=== PATIENT | female | born 1970 | race Caucasian/White ===

== ENCOUNTER 2024-08-29 09:02 | Outpatient (AMB) | payer OTHER, SELFPAY ==
--- NOTE | 2024-08-29 09:04 | MHC.OFFVIS ---
Vital Signs 08/29/24 09:11 BP 135/76 Blood Pressure Location Rt brachial Position Sitting Pulse 73 Pulse Source Pulse Oximeter Pulse Oximetry (%) 99 Oxygen Delivery Method Room Air Intake Visit Reasons: CHRONIC BACK PAIN Intake Note: Pain today 8.5/10 Radio Interference Supervisor Required: No Allergies gabapentin Allergy (Unknown, Verified 08/29/24 09:10) Hives lisinopril Allergy (Unknown, Verified 08/29/24 09:15) Headache losartan Allergy (Unknown, Verified 08/29/24 09:15) Fatigued metformin Allergy (Unknown, Verified 08/29/24 09:15) Unknown nitrofurantoin Allergy (Unknown, Verified 08/29/24 09:15) Gastrointestinal Upset pregabalin Allergy (Unknown, Verified 08/29/24 09:10) Throat tingling sulfamethoxazole (From Sulfamethoxazole-Trimethoprim) Allergy (Unknown, Verified 08/29/24 09:15) vaginal itching/ mouth sores trimethoprim (From Sulfamethoxazole-Trimethoprim) Allergy (Unknown, Verified 08/29/24 09:15) vaginal itching/ mouth sores HPI Comments Details: The patient is a 54-year-old female presenting with chronic low back pain. The pain has been present for approximately 10 years and is described as constant, pulsing, throbbing, pounding, stabbing, sharp, tingling, tiring, tight squeezing, and radiating. The pain is most severe in the morning, rated at 10/10, and less severe in the afternoon, rated at 8/10. The patient has a history of type 2 diabetes mellitus with complications including diabetic neuropathy and nephropathy. She has been on long-term insulin therapy and reports an A1c level between 8 and 9. The diabetic neuropathy has been present for approximately 18 years, with burning pain that is constant and worsens at night. The patient has undergone various interventions for her pain, including physical therapy at [facility], chiropractic manipulation, massage therapy, acupuncture, back and shoulder injections, and herbal supplements (turmeric), all without significant relief. She has also received hydrocodone and oxycodone for pain management, which have been effective. She reports adverse reactions to gabapentin and pregabalin, including hives and tingling in the throat, respectively. The patient has a history of cervical radiculitis, carpal tunnel syndrome on the right, depression, diabetic kidney disease, fibromyalgia, chronic fatigue, and arthritis. She is on permanent disability since 2015 due to her chronic conditions. Her medical history includes hemangioma, facial nerve surgery (1972), knee surgery, and gastric bypass. The patient does not smoke and has stopped consuming wine. She experiences chronic fatigue and arthritis, which affect her daily activities and functioning, including sleep, social life, and traveling. - Onset: Pain has been present for approximately 10 years. - Quality: Described as constant, pulsing, throbbing, pounding, stabbing, sharp, tingling, tiring, tight squeezing, and radiating. - Severity: Most severe in the morning, rated at 10/10, and less severe in the afternoon, rated at 8/10. - Location: Primarily in the lower back, radiating to the legs and right shoulder. - Exacerbating factors: Bending, lifting, weather changes, walking, sitting, standing. - Relieving factors: Lying down, use of heat, opioids. - Interference: Affects daily activities, including sleep, social life, and traveling. - Affect: Pain impacts daily activities and functioning, including sleep, social life, and traveling. - Analgesia: Reports hydrocodone and oxycodone have been most effective for pain relief. - Adverse Effects: Reports hives with gabapentin and tingling in the throat with pregabalin. - Activities of Daily Living: Pain affects daily activities, including sleep, social life, and traveling. - Aberrant Drug Related Behaviors: No aberrant behaviors reported. Oswestry Low Back Pain Disability Score=24 [facility] Medical History (Updated 08/29/24 @ 23:14 by MARS Kc) Chronic low back pain Facial hemangioma (~1972) Tarsal tunnel syndrome Vitamin B12 deficiency Type II diabetes mellitus with neurological manifestations Thickened endometrium Post-nasal drainage Lumbar radicular pain Liver fibrosis Snoring Insomnia Incisional hernia Hypertension Hyperlipidemia Herpes Surgical History (Updated 08/29/24 @ 23:07 by MARS Kc) History of facial surgery (~1972) Hx of gastric bypass (~2022) Hx of knee surgery (~1994) History of hernia repair (~2008) History of H/O tubal ligation Social History (Updated 08/29/24 @ 09:32 by Aliza Omer) Alcohol intake: former Year quit: 2002 Patient Tobacco Use Status: Never used Tobacco Review of Systems Const Details: - Musculoskeletal: Reports chronic low back pain, leg stiffness, burning, tightness in legs, right shoulder pain radiating to shoulder blade. - Neurological: Reports diabetic neuropathy with burning pain, tingling in feet, and leg swelling. - Endocrine: Reports type 2 diabetes mellitus with A1c between 8 and 9. - Psychiatric: Reports depression. - General: Reports chronic fatigue, arthritis. All systems reviewed & are unremarkable except as noted in HPI and below Physical Exam Vital Signs: Last Vital Signs Pulse 73 08/29/24 09:11 BP 135/76 08/29/24 09:11 Pulse Ox 99 08/29/24 09:11 Oxygen Delivery Method Room Air 08/29/24 09:11 General: Appears afebrile. Alert and oriented. Mood and affect appropriate. Follows and participates in conversation appropriately. Respiratory effort is unlabored. No cough. Able to transition from sit to stand unassisted. Ambulates with bilaterally normal heel strike and toe off. General: Yes no CVA tenderness Back/Spine/Pelvis Other: Limited lumbar ROM due to pain. Lumbar extension and flexion reproduces moderate pain. Demonstrates 5/5 strength of quadriceps bilaterally as well as flexion/dorsiflexion of bilateral feet against resistance. 2+ pedal pulses bilaterally. Straight leg rise with dorsiflexion negative bilaterally. +2 patellar and achilles reflexes bilaterally. Facet loading test positive bilaterally. Ishaan sign, Shmuel?s, Pelvic compression and Stinchfield tests are positive bilaterally. No groin pain with I/E hip rotations. Valsalva maneuver negative. Back: no CVA tenderness Cervical Spine: cervical ROM normal, cervical muscular tenderness and No Cervical spine tenderness Thoracic/Lumbar Spine: thoracic and lumbar spine normal to inspection, No Thoracic/lumbar spine scar(s), Lasegue's sign negative, straight leg raise negative bilaterally, pain with thoraco-lumbar ROM, paraspinal muscle tenderness, thoraco-lumbar ROM limited, No thoracic spinal tenderness and lumbar spinal tenderness (L3-S1) Sacroiliac joints: bilaterally tender to palpation Extrem Other: There is a decreased sensation over the soles of the left foot and toes. Positive presence of protective pain sensation bilaterally. Reports numbness, burning, tingling and bilateral foot pain, worse at night time. No breaks in the skin. No soft tissue swelling or warmth. +2 pedal pulses bilaterally. General: Yes capillary refill normal, Yes no clubbing, cyanosis or edema and Yes no calf tenderness Results Reviewed Results Reviewed: Assessment & Plan Assessment & Plan (1) Chronic painful diabetic neuropathy: Code(s): E11.40 - Type 2 diabetes mellitus with diabetic neuropathy, unspecified Category: Medical (2) Chronic low back pain: Code(s): M54.50 - Low back pain, unspecified; G89.29 - Other chronic pain Category: Medical (3) Lumbar degenerative disc disease: Code(s): M51.369 - Other intervertebral disc degeneration, lumbar region without mention of lumbar back pain or lower extremity pain Category: Medical (4) Lumbosacral spondylosis: Code(s): M47.817 - Spondylosis without myelopathy or radiculopathy, lumbosacral region Category: Medical (5) Sacroiliac joint pain: Code(s): M53.3 - Sacrococcygeal disorders, not elsewhere classified Category: Medical (6) Bilateral foot pain: Code(s): M79.671 - Pain in right foot; M79.672 - Pain in left foot Category: Medical Plan The management plan for the patient's chronic low back pain includes exploring non-steroidal interventions due to her elevated blood sugar and A1C levels. Peripheral nerve stimulation and spinal cord stimulation are considered, but neuromodulation will be deferred until the patient's A1c is below 7.0-7.5. Will try to arrange topical 8% capsaicin (Qutenza) application for bilateral foot pain as the next step once we have confirmed availability. Nerve blocks and radiofrequency ablation are suggested as potential treatments for back pain, as they do not involve steroids and are suitable for patient. The patient is advised to consider a Etl Manager referral for diabetic foot care to prevent complications such as Charcot foot. She requests provider in [facility]. Medical release request sent to [employer] and [employer] for previous imaging and procedures for review. I have informed patient I do not offer opioid prescribing at this time, recommendations for chronic pain management were focused on non-opioid medication and interventional treatments. All questions and concerns have been answered and patient agrees with the treatment plan. Follow-up as needed. Patient was informed and verbally consented to the use of an ambient scribe for clinic note documentation during this visit. Orders: Referrals Podiatry Referral E11.40 - Type 2 diabetes mellitus with diabetic neuropathy, unspecified, M79.671 - Pain in right foot, M79.672 - Pain in left foot Coding Level of Care Code New Pt Level 4 (98756) Diagnoses Chronic painful diabetic neuropathy E11.40 Chronic low back pain M54.50; G89.29 Lumbar degenerative disc disease M51.369 Lumbosacral spondylosis M47.817 Sacroiliac joint pain M53.3 Bilateral foot pain M79.671; M79.672
[2024-08-29 09:11] VITALS: BP 135/76; PULSE 73; O2SAT 99
--- OUTSIDE RECORDS SUMMARY | 2024-08-29 09:24 | XMS_ITS | Encounter Summary ---
Author Organization [facility] [place] [address] Care Team Providers Care Boat Assembler Name Role Phone Tk Mishra MD Primary Care Provider [phone] Reason for Visit * Reason Onset Date Comments Results 08/28/2024 Encounter Details Date Type Department Care Team ([facility] st Contact Info) Description 08/28/2024 Telephone Obstetrics and Gynecology [address] [phone] Miranda Tatum MA Results Social History Tobacco Use Types Packs/Day Years Used Date Smoking Tobacco: Never Smokeless Tobacco: Never Alcohol Use Standard Drinks/Week Comments No 0 (1 standard drink = 0.6 oz pur e alcohol) Housing Instability Answer Date Recorde d Are you worried that in the next 2 months you may not have stable housing? Patient declined 02/15/2024 Food Access & Nutrition Answer Date Rec orded Do you have access to a vari ety of food including fruits and vegetables? Patient declined 02/15/2024 Health Literacy Answer Date Recorded How often do you need to hav e someone help you when you read instructions, pamphlets, or other written material from your doctor or pharmacy? Patient declined 02/15/2024 Caregiver: How often do you need to have someone help you when you read instructions, pamphlets, or other written material from your doctor or pharmacy? Not on file 025 Financial Risk Answer Date Recorded How hard is it for you to pa y for the very basics like food, housing, medical care, and air conditioning / heating? Patient declined 02/15/2024 Transportation Answer Date Recorded Has the lack of transportati on kept you from meetings, work, or from getting things needed for daily living? Patient declined 02/15/2024 Has the lack of transportati on kept you from medical appointments or from getting medications? Patient declined 02/15/2024 Social Isolation Answer Date Recorded How often do you feel lonely or isolated from those around you? Patient declined 02/15/2024 Food Risk Answer Date Recorded Within the past 12 months we worried whether our food would run out before we got money to buy more. Never true 02/15/2024 Within the past 12 months th e food we bought just didn't last and we didn't have money to get more. Never true 02/15/2024 Dependent Care Answer Date Recorded Do you need help finding or paying for care for your loved ones. For example, child and family therapist or elderly care for an older adult? Patient declined 02/15/2024 Education Answer Date Recorded Do you think completing more education or training, like finishing a GED, going to college, or learning a trade, would be helpful for you? Patient declined 02/15/2024 Employment and Income Answer Date Recor ded During the last four weeks, have you been actively looking for work? Patient declined 02/15/2024 Living Situation Answer Date Recorded What is your living situation? 0 02/15/2024 Comments No Sex and Gender Information Value Date Recorded Sex Assigned at Not on file Legal Sex Female 3:00 AM EST Gender Identity Not on file Sexual Orientation Not on file documented as of this encounter Progress Notes * Miranda Tatum MA - 08/28/2024 2:19 PM EDT Pt is aware and message was sent to provider * Miranda Tatum MA - 08/28/2024 1:17 PM EDT Pt cancelled hysteroscopy, unsure if she plans to reschedule. U/s f/u on ovarian cyst stable no change, no further f/u needed at this time. Left voice message for patient to contact the office. documented in this encounter Plan of Treatment Upcoming Encounters Date Type Department Care Team (Late st Contact Info) Description 09/03/2024 1:15 PM EDT Office Visit Bariatric Surgery - [place] [address] [phone] Tresa Bryson MD 175 [facility] [address] [place] [address] 10/31/2024 10:00 AM EDT Procedure visit Urogynecology [id number] [place] [address] Elle Rosen NP 580 [facility] [address] [place] [address] documented as of this encounter Visit Diagnoses Not on filedocumented in this encounter Additional Health Concerns Assessment Noted Time PHQ-9 Depression Total Score: 14 025 8:21 PM EST documented as of this encounter Care Teams Boat Assembler Relationship Specialty Start Date End Date Tk Mishra MD [address] [place] [id number] PCP - General Internal Medicine 12/21/23 documented as of this encounter
== END 2024-08-29 09:40 | disposition home or self-care (01) ==
LOC: HO.PMC 09:02
PROVIDERS: PCP Internal Medicine; Referring Provider Internal Medicine; Visit Provider Nurse Practitioner Family
DX: E11.40 Type 2 diabetes mellitus with diabetic neuropathy, unspecified (principal); M54.50 Low back pain, unspecified; G89.29 Other chronic pain; M51.369 Other intervertebral disc degeneration, lumbar region without mention of lumbar back pain or lower extremity pain; M47.817 Spondylosis without myelopathy or radiculopathy, lumbosacral region; M53.3 Sacrococcygeal disorders, not elsewhere classified; M79.671 Pain in right foot; M79.672 Pain in left foot
CPT/HCPCS: 99204

== ENCOUNTER → 2024-08-29 09:02 | Outpatient (BNVA) | payer OTHER, SELFPAY | PROVIDERS: PCP Internal Medicine; Referring Provider Internal Medicine; Visit Provider Nurse Practitioner Family | DX: M51.369 Other intervertebral disc degeneration, lumbar region without mention of lumbar back pain or lower extremity pain (principal); E11.40 Type 2 diabetes mellitus with diabetic neuropathy, unspecified; M47.817 Spondylosis without myelopathy or radiculopathy, lumbosacral region; M53.3 Sacrococcygeal disorders, not elsewhere classified; M54.50 Low back pain, unspecified; M79.671 Pain in right foot; M79.672 Pain in left foot; G89.29 Other chronic pain; Z79.4 Long term (current) use of insulin | CPT/HCPCS: 99202 ==

== ENCOUNTER 2024-11-14 08:43 | Outpatient (AMB) | payer OTHER, SELFPAY ==
--- OUTSIDE RECORDS SUMMARY | 2024-11-14 09:13 | XMS_ITS ---
Author Name [facility] Organization Unknown Care Team Organization Name Specialty Phone Email Start Date End [facility] Tk Mishra Primary Care 12/21/2021 10/02/19 24
--- OUTSIDE RECORDS SUMMARY | 2024-11-14 09:13 | XMS_ITS | Clinical Summary ---
Author Organization [address] [facility] Address [address] [place] [address] Phone Care Team Providers Care Credit Risk Officer Name Role Phone Tk Mishra MD Primary Care Provider [phone] Allergies Active Allergy Reactions Criticality Noted Date Comments Hairvite Hives 04/18/2022 Horse Dander Anaphylaxis High 03/19/2013 Lisinopril Headache Low 05/21/2014 migraines Losartan Headache,Other Medium 06/13/2014 fatigue Metformin GI intolerance 05/11/2022 Nitrofurantoin Other 10/06/2017 Upper Abdominal discomfort Sulfamethoxazole-Trimethop rim Itching,Other 03/01/2021 Vaginal itching and mouth sore Medications blood-glucose meter misc 1 Device by Does not apply route daily. 023 Active azelastine (ASTELIN) 137 mcg (0.1 %) nasal spray SPRAY 2 SPRAYS INTO EACH NOSTRIL TWICE A DAY DIRECTED 023 Active albuterol sulfate (ProAir RespiClick) 90 mcg/actuation aerosol powdr breath activated Inhale 108 mcg into the lungs 4 times daily as needed (wheezing). 022 Active acyclovir (ZOVIRAX) 400 mg tablet TAKE 1 TABLET BY MOUTH THREE TIMES A DAY 023 Active flash glucose sensor (FREESTYLE DARBY 2 SENSOR MISC) 1 Device by Does not apply route every 14 days. 024 Active blood-glucose meter,continuous (FreeStyle Darby 3 Vilas) misc 1 Device by Does not apply route daily. 024 Active clotrimazole (MYCELEX) 10 mg doris Take 1 Doris by mouth 5 times daily for 10 days. 024 Active clotrimazole-bet amethasone (LOTRISONE) 1-0.05 % cream Apply to area sparingly twice a day for up to two weeks 023 Active EPINEPHrine (EpiPen Jr) 0.15 mg/0.3 mL injection Inject as directed. prn Active FREESTYLE LANCETS MISC Use tid 023 Active blood sugar diagnostic (FreeStyle Lite Strips) test strip 1 Strip by In Vitro route daily. 023 Active estradioL (ESTRACE) 2 mg tablet Take 1 tablet (2 mg total) by mouth 1 (one) time each day. 90 tablet 3 025 2025 Active medroxyPROGESTER one (PROVERA) 5 mg tablet Take 1 tablet (5 mg total) by mouth 1 (one) time each day. 90 tablet 3 025 Active Additional Information Patient not taking.Reported on 08/15/2024 estradioL (ESTRACE) 0.01 % (0.1 mg/gram) vaginal cream Apply 1gm pv daily for 1wk then twice wkly for maintenace 42.5 g 2 025 Active vitamin A 3,000 mcg (10,000 unit) capsuleIndicatio ns:Postoperative intestinal malabsorption TAKE 1 TABLET (10,000 UNITS TOTAL) BY MOUTH 1 (ONE) TIME EACH DAY. 90 capsule 1 025 Active solifenacin (VESICARE) 10 mg tablet Take 1 tablet (10 mg total) by mouth 1 (one) time each day. Swallow tablet whole; do not crush, chew, or split. 90 each 3 025 2025 Active ospemifene 60 mg tablet Take 1 each by mouth 1 (one) time each day. 90 tablet 025 Active Additional Information Patient not taking.Reported on 08/15/2024 vitamin A palmitate 3,000 mcg (10,000 unit) capsule Take 1 capsule by mouth 1 (one) time each day. 025 Active loratadine (CLARITIN) 10 mg tablet TAKE 1 TABLET BY MOUTH 1 TIME EACH DAY. 90 tablet 025 Active blood-glucose sensor (FreeStyle Darby 3 Plus Sensor) deviceIndication s:Type II diabetes mellitus with neurological manifestations (CMS/[facility] V24, CMS/HCC V28) Box = Kit = EA 2 each Active triamcinolone (KENALOG) 0.025 % ointment Apply 3-4x/day to affected area 15 g 1 025 Active incontinence pad, liner, disp (Bladder Control Pads) pad Patient to change pad 3x daily or PRN 90 each Active escitalopram (LEXAPRO) 5 mg tablet Take 1 tablet (5 mg total) by mouth 1 (one) time each day. 90 tablet 025 Active EPINEPHrine (EPIPEN) 0.3 mg/0.3 mL injection Inject 0.3 mL (0.3 mg total) into the thigh if needed for anaphylaxis. Call 911 after use. 2 each 025 2025 Active triamcinolone (KENALOG) 0.025 % ointment Apply 3-4x/day to affected area 15 g 1 025 Active terconazole (TERAZOL 3) 80 mg vaginal suppository Insert 1 suppository (80 mg total) into the vagina at bedtime. Apply pv x3days 4 suppository 3 Active tirzepatide (Mounjaro) 5 mg/0.5 mL injection Inject 0.5 mL (5 mg total) under the skin every 7 (seven) days. 2 mL 1 025 Active traZODone (DESYREL) 50 mg tablet TAKE 1 TABLET BY MOUTH AT BEDTIME NEEDED FOR SLEEP. 90 tablet 025 Active traZODone (DESYREL) 50 mg tablet Take 1 tablet (50 mg total) by mouth at bedtime as needed for sleep. 30 tablet 025 2024 Discontinued semaglutide (Ozempic) 0.25 mg or 0.5 mg(2 mg/1.5 mL) injection pen Inject 0.25 mg under the skin every 7 (seven) days. 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 V24, [facility] V2 8) 07/04/2019 Carpal tunnel syndrome on right 03/06/2018 Allergic rhinitis 10/27/2017 Post-nasal drainage 10/27/2017 Snoring 10/27/2017 Overview (12/01/2023): 11/2017 Home Sleep Study did not reveal sleep apnea. Fibromyalgia 05/18/2017 Liver fibrosis 03/29/2017 Overview (12/01/2023): 02/14/17 -Fibrotic changes secondary to hepatitis effects. Biopsy done. Ultrasound to be done Basal cell carcinoma, eyelid 09/14/2016 Tarsal tunnel syndrome 11/13/2014 Overview (12/01/2023): EMG testing Dr. Stauffer 10/2014 Type II diabetes mellitus wi th neurological manifestations ([facility] V24, [facility] V28) 11/13/2014 Plantar fascial fibromatosis 10/04/2013 Overview (12/01/2023): Dr Elias Mendenhall 04/11/13 Microalbuminuria 08/02/2013 Hyperlipidemia 04/11/2013 Eczema 12/09/2011 Hemangioma 03/16/2009 Overview (12/01/2023): Removed from under right angle of jaw when 1 years old Asthma 06/19/2008 Narrowing of intervertebral disc space 8 Carcinoma in situ of cervix uteri 03/03/2006 Overview (12/01/2023): cone 2002 free margins Type II diabetes mellitus wi th renal manifestations ([facility] V24, [facility] V28) 11/01/2005 Incisional hernia 06/22/2005 Hypertension 06/01/2005 Overview (12/01/2023): In . Not currently on medications. She's been intolerant to both JT/ARB. Encounters Date Type Department Care Team Description 10/17/2024 Telephone Endocrinology - [address] [phone] Filomena George PA 09/20/2024 Telephone Internal Medicine - [address] [place], [place] [phone] Tk Mishra MD 09/19/2024 Telephone Internal Medicine - [address] [facility] [place], [place] [phone] Tk Mishra MD 09/06/2024 Telephone Internal Medicine - [address] [place], [place] [phone] Tk Mishra MD 09/03/2024 1:15 PM EDT Office Visit Bariatric Surgery [facility] [address] [place] [phone] Tresa Bryson MD Postoperative intestinal malabsorption (Primary Dx); Over weight 09/03/2024 Telephone Internal Medicine - [address] [place], [place] [phone] Tk Mishra MD 08/28/2024 Telephone Obstetrics and Gynecology - [address] [phone] Miranda Tatum MA 08/27/2024 10:21 AM EDT - 08/27/2024 11:59 PM EDT Hospital Encounter Ultrasound - [address] [place] [phone] Left ovarian cyst Discharge Disposition: Home or Self Care 08/19/2024 Telephone Obstetrics and Gynecology - [address] [phone] Luciana Bucio DO 08/15/2024 10:45 AM EDT Office Visit Urogynecology - [address] [phone] Elle Rosen NP Mixed stress and urge urinary incontinence (Primary Dx); Postmenopausal bleeding; Vaginal atrophy from Last 3 Months Immunizations Immunization Administration Dates Next Due H1N1 Inj Preservative Free 02/11/2009 Hepatitis A-Hepatitis B Adul t (Twinrix) 18yo and older 12/17/2009,03/16/2009,02/11/2009 Influenza trivalent, 0.5mL, preservative free (Fluarix; FluLaval; Fluzone) ages 6mo and older (Afluria) 3 years and older 11/18/2009,02/11/2009 Pfizer SARS-CoV-2 COVID-19, mRNA, LNP-S, preservative free 11/27/2020 Pneumococcal polysaccharide 23 valent (Pneumovax 23) 2yo and older 11/13/2014 Tdap Tetanus diptheria acell ular pertussis (Boostrix; Adacel) 7yo and older 06/22/2010 Surgical History Surgery Date Site/Laterality Comments INCISIONAL HERNIA REPAIR 08/2005 PROCEDURE: [facility] IMPLANT MESH OPN HERNIA RPR/DEBRIDEMENT CLOSURE; COMMENT: Olivier OTHER SURGICAL HISTORY 2003 PROCEDURE: [facility] FIMBRIOPLASTY OTHER SURGICAL HISTORY PROCEDURE: [facility] SALPINGOSTOMY; COMMENT: reversal of tubal ligation -2003 SECTION PROCEDURE: [facility] DELIVERY ONLY; COMMENT: x 4 TUBAL LIGATION 1991; 2007 PROCEDURE: HISTORICAL TUBAL LIGATION KNEE ARTHROSCOPY W/ DEBRIDEMENT 1993 PROCEDURE: [facility] ARTHRS KNEE DEBRIDEMENT/SHAVING ARTCLR CRTLG; COMMENT: right OTHER SURGICAL HISTORY age 1 PROCEDURE: [facility] ANESTHESIA FACIAL BONES OR SKULL NOS; COMMENT: facial hemangioma right jaw area OTHER SURGICAL HISTORY 2001 PROCEDURE: SCREENING COLPOSCOPY; COMMENT: with Leep OTHER SURGICAL HISTORY 10/11/2016 PROCEDURE: [facility] EXCISION MALIGNANT LESION F/E/E/N/L 0.5 CM/<; COMMENT: With reconstruction the following day (Basal cell CA) COLONOSCOPY 02/2021 PROCEDURE: HISTORICAL COLONOSCOPY; COMMENT: nml BREAST BIOPSY 2015 Right PROCEDURE: BX BREAST; PERC NEEDLE CORE W/IMAG GUID; COMMENT: rt side bx Medical History Medical History Date Comments Essential hypertension, benign 06/01/2005 D X:Essential hypertension, benign Tarsal tunnel syndrome 11/13/2014 DX:Tarsal tunnel syndrome; COMMENT: EMG testing Dr. Stauffer 10/2014 Depression DX:Depression; C OMMENT: hx of several years ago, treated. sxs now returning ; start fluoxetine 12/2006 Incisional hernia 06/22/2005 DX:Incisional hernia Asthma 06/19/2008 DX:Asthma Chronic hepatitis C (CMS/HCC V24, CMS/HCC V28) 04/11/2013 DX:Chronic hepatitis C (HCC) ; COMMENT: treated Eczema 12/09/2011 DX:Eczema Hemangioma 03/16/2009 DX:Hemangioma; C OMMENT: Removed from under right angle of jaw when 1 years old History of cervical cancer 03/03/2006 DX:Hi story of cervical cancer; COMMENT: cone 2003 free margins Hyperlipidemia 04/11/2013 DX:Hyperlipidemi a Microalbuminuria 08/02/2013 DX:Microalbumin uria Narrowing of intervertebral disc space 01/15/2008 DX:Narrowing of intervertebral disc space Plantar fascial fibromatosis 10/04/2013 DX: Plantar fascial fibromatosis; COMMENT: Dr Elias Mendenhall 04/11/13 Type II diabetes mellitus wi th neurological manifestations (CMS/HCC V24, CMS/HCC V28) 11/13/2014 DX:Type II diabetes mellitus with neurological manifestations (HCC) Type II diabetes mellitus wi th renal manifestations (CMS/HCC V24, CMS/HCC V28) 11/01/2005 DX:Type II diabetes mellitus with renal manifestations (HCC) BCC (basal cell carcinoma), eyelid, left 10/11/2016 DX:BCC (basal cell carcinoma ), eyelid, left Liver fibrosis 03/29/2017 DX:Liver fibrosi s; COMMENT: 02/14/17 -Fibrotic changes secondary to hepatitis effects. Biopsy done. Ultrasound to be done Diabetic kidney disease (CMS /HCC V24, CMS/HCC V28) 07/04/2019 DX:Diabetic kidney disease ( HCC) Family History Medical History Relation Name Comments Brain cancer Father HTN, Breast cancer Father's Sister p 70s Diabetes Father's Sister p 70s Arthritis Maternal Grandfather Arthritis Maternal Grandmother Lymphoma Mother Lymphoma Other: Spinal tumor Mother's side cousin Heart attack Paternal Grandmother Diabetes Uncle paternal Blindness Neg Hx cataract, glauc kurt, macular degeneration, strabismus Colon cancer Neg Hx Ovarian cancer Neg Hx Pancreatic cancer Neg Hx Prostate cancer Neg Hx Uterine cancer Neg Hx Relation Name Status Comments Father (Age 53) Cancer - b rain Father's Sister p 70s Alive Maternal Grandfather Maternal Grandmother Mother (Age 63) lymphoma Mother's side cousin Paternal Grandmother Uncle paternal Social History Tobacco Use Types Packs/Day Years Used Date Smoking Tobacco: Never Smokeless Tobacco: Never Tobacco Cessation:Counseling Given: Not Answered Alcohol Use Standard Drinks/Week Comments No 0 [...] for your loved ones. For example, child development director or elderly care for an older adult? [...] Date Recorded What is your living situation? Unrecognized valu e 02/15/2024 Comments No Sex and Gender Information Value Date Recorded Sex Assigned at Not on file Legal Sex Female 3:00 AM EST Gender Identity Not on file Sexual Orientation Not on file Obstetrics History Para Term AB IAB SAB Ectopic Multiple Livin g Live Births 4 4 3 1 4 4 Date Outcome GA Total Labor Labor/2nd/3rd Weight Sex Type Anes PTL Carole A1 A5 Name Clin 992 Term 38w 0d 4649 g (164 oz) F CS-Un spec Livin g Elayne ny Delivery Location:[facility] Comments:HTN 004 35w 5d 4394 g (155 oz) M CS-Un spec Livin g Boscor abraham Delivery Location:[facility] Comments:GDM-A2 006 Term 39w 0d 4309 g (152 oz) M CS-Un spec Livin g Vinzor abraham Delivery Location:[facility] Comments:GDM-A2 008 Term 39w 0d 4224 g (149 oz) M CS-Un spec Livin g Nikkor abraham Delivery Location:[facility] Comments:GDM-A2 Last Filed Vital Signs Vital Sign Reading Time Taken Comments Blood Pressure 104/65 09/03/2024 1:25 PM EDT Pulse 64 09/03/2024 1:25 PM EDT Temperature 36.6 C (97.8 F) 09/03/2024 1:25 PM EDT Respiratory Rate 14 08/15/2024 10:36 AM EDT Oxygen Saturation 99% 05/23/2024 8:49 AM EDT Inhaled Oxygen Concentration - - Weight 62.6 kg (138 lb) 09/03/2024 1:25 PM EDT Height 157.5 cm (5' 2 ) 09/03/2024 1:25 PM EDT Body Mass Index 25.24 09/03/2024 1:25 PM EDT Plan of Treatment Upcoming Encounters Date Type Department Care Team (Late st Contact Info) Description 03/06/2025 1:00 PM EST Office Visit Bariatric Surgery - [address] [place] [phone] Tresa Bryson MD [address] [place] [phone] Health Maintenance Due Date Last Done Comments Colorectal Cancer Screening: Colonoscopy 1968 Diabetes: Annual Foot Exam 1978 Pneumococcal Vaccine: 50+ Years (2 of 2 - PCV) 11/14/2015 11/13/2014 DTaP,Tdap,and Td Vaccines (2 - Td or Tdap) 06/22/2020 06/22/2010 HIV Screening 01/22/2022 COVID-19 Vaccine ( - season) 2024 11/27/2020, 05/31/2020, 05/08/2020 Influenza Vaccine (#1) 2024 0, 02/11/2009, 02/11/2009 Diabetes: Annual Retina Eye Exam 11/01/2024 11/02/2023 Breast Cancer Screening 11/08/2024 11/09/19 23, 08/29/2022, 02/23/2022, Additional history exists Diabetes: Annual Urine Albumin-Creatinine Ratio (uACR) 01/23/2025 01/24/2024, 06/09/2021 Social Influencers of Health Screening 02/14/2025 02/15/2024 Diabetes: Blood Sugar Control Test (HGBA1C) 03/06/2025 09/03/2024, 05/23/2024, 01/24/2024, Additional history exists Diabetes: Annual GFR (Glomerular Filtration Rate) 09/03/2025 09/03/2024, 01/24/2024, 08/21/2023, Additional history exists Hypertension/CHF/CAD Annual BMP Blood Test 09/03/2025 09/03/2024, 01/24/2024, 08/21/2023, Additional history exists Cholesterol Screening (Lipid Panel) 01/23/2029 01/24/2024, 12/13/2021 Cervical Cancer Screening: HPV 07/01/2029 07/01/2024, 10/25/2019 RSV Immunization Adult Patients (1 - 1-dose 75+ series) 2043 Hepatitis C Screening Completed 02/09/2009 Hepatitis A Vaccines Completed 12/17/2009, 03/16/2009, 02/11/2009 Hepatitis B Vaccines Completed 12/17/2009, 03/16/2009, 02/11/2009 Depression Screening Completed 02/15/2024, 11/13/19 24 HIB Vaccines Aged Out No longer eligi ble based on patient's age to complete this topic HPV Vaccines Aged Out No longer eligi ble based on patient's age to complete this topic IPV Vaccines Aged Out No longer eligi ble based on patient's age to complete this topic MMR Vaccines Aged Out No longer eligi ble based on patient's age to complete this topic Meningococcal ACWY Vaccine Aged Out N o longer eligible based on patient's age to complete this topic Meningococcal B Vaccine Aged Out No l onger eligible based on patient's age to complete this topic RSV Immunization Patients Under 20 months Aged Out No longer eligible based on patient's age to complete this topic Varicella Vaccines Aged Out No longer eligible based on patient's age to complete this topic Zoster Vaccines Discontinued Procedures Procedure Name Priority Date/Time Associated Diagnosis Comments CBC WITH AUTO DIFFERENTIAL Routine 09/03/2024 1:41 PM EDT Preop testing VITAMIN A Routine 09/03/2024 1:41 PM EDT Postoperative intestinal malabsorption SELENIUM SERUM Routine 09/03/2024 1:41 PM EDT Postoperative intestinal malabsorption FERRITIN Routine 09/03/2024 1:41 PM EDT Postoperative intestinal malabsorption FOLATE Routine 09/03/2024 1:41 PM EDT Postoperative intestinal malabsorption IRON AND TIBC Routine 09/03/2024 1:41 PM EDT Postoperative intestinal malabsorption VITAMIN D 25 HYDROXY Routine 09/03/2024 1:41 PM EDT Postoperative intestinal malabsorption VITAMIN B12 Routine 09/03/2024 1:41 PM EDT Postoperative intestinal malabsorption VITAMIN B1 Routine 09/03/2024 1:41 PM EDT Postoperative intestinal malabsorption MAGNESIUM Routine 09/03/2024 1:41 PM EDT Postoperative intestinal malabsorption ALBUMIN Routine 09/03/2024 1:41 PM EDT Postoperative intestinal malabsorption BASIC METABOLIC PANEL Routine 09/03/2024 1:41 PM EDT Preop testing CBC AND DIFFERENTIAL Routine 09/03/2024 1:41 PM EDT Preop testing HEMOGLOBIN A1C Routine 09/03/2024 1:41 PM EDT Type II diabetes mellitus with neurological manifestations (CMS/HCC V24, CMS/HCC V28) US PELVIS NON OB COMPLETE W TRANSVAGINAL Routine 08/27/2024 11:08 AM EDT Left ovarian cyst HPV WITH REFLEX GENOTYPE Routine 07/01/2024 9:19 AM EDT Women's annual routine gynecological examination MICROALBUMIN CREATININE URINE RATIO Routine 01/24/2024 9:25 AM EST Type 2 diabetes mellitus with other kidney complication, unspecified whether intermediate insulin use (CMS/HCC V24, CMS/HCC V28) LIPID PANEL WITH REFLEX TO DIRECT LDL Routine 01/24/2024 9:25 AM EST Type 2 diabetes mellitus with other kidney complication, unspecified whether intermediate insulin use ([facility] V24, [facility] V28) DEPRESSION SCREENING Routine 11/13/2023 EXTERNAL DIABETIC RETINA EYE EXAM Routine 11/02/2023 3:23 PM EDT DX MAMMO INCL CAD UNI Routine 11/08/2022 1:56 PM EDT Other abnormal and inconclusive findings on diagnostic imaging of breast HEPATITIS C SCREENING Routine 02/09/2009 from Last 3 Months or Most Recently Relevant to Health Maintenance Results * (ABNORMAL) CBC auto differential (09/03/2024 1:41 PM EDT) WBC 10.2 4.8 - 10.8 K/mcL LAB HEMETOLOGY METHOD 09/03/2024 6:35 PM EDT [facility] RBC 4.40 3.80 - 4.80 M/mcL LAB HEMETOLOGY METHOD 09/03/2024 6:35 PM EDT [facility] Hemoglobin 12.5 11.5 - 16.0 g/dL LAB HEMETOLOGY METHOD 09/03/2024 6:35 PM EDT [facility] Hematocrit 39.2 35.0 - 47.0 % LAB HEMETOLOGY METHOD 09/03/2024 6:35 PM EDT [facility] MCV 88.5 79.0 - 98.0 FL LAB HEMETOLOGY METHOD 09/03/2024 6:35 PM EDT [facility] MCH 28.2 27.0 - 32.0 pcg LAB HEMETOLOGY METHOD 09/03/2024 6:35 PM EDT [facility] MCHC 31.9(L) 32.0 - 37.0 g/dL LAB HEMETOLOGY METHOD 09/03/2024 6:35 PM EDT [facility] RDW 13.7 11.0 - 15.0 % LAB HEMETOLOGY METHOD 09/03/2024 6:35 PM EDT [facility] Platelets 346 130 - 400 K/mcL LAB HEMETOLOGY METHOD 09/03/2024 6:35 PM EDT [facility] MPV 10.4 7.0 - 11.0 FL LAB HEMETOLOGY METHOD 09/03/2024 6:35 PM EDT [facility] NRBC 0.0 <1.0 % LAB HEMETOLOGY METHOD 09/03/2024 6:35 PM EDT [facility] NRBC Absolute 0.00 <0.10 K/mcL LAB HEMETOLOGY METHOD 09/03/2024 6:35 PM EDT [facility] Neutrophils Relative 60.1 % LAB HEMETOLOGY METHOD 09/03/2024 6:35 PM EDT [facility] Lymphocytes Relative 30.6 % LAB HEMETOLOGY METHOD 09/03/2024 6:35 PM EDT [facility] Monocytes Relative 5.3 % LAB HEMETOLOGY METHOD 09/03/2024 6:35 PM EDT [facility] Eosinophils Relative 3.0 % LAB HEMETOLOGY METHOD 09/03[facility]24 [facility] Basophils Relative 0.7 % LAB HEMETOLOGY METHOD 09/03/2024 6:35 PM EDT [facility] Immature Granulocytes Relative 0.3 % LAB HEMETOLOGY METHOD 09/03/2024 6:35 PM EDT [facility] Neutrophils Absolute 6.12 1.50 - 7.00 K/mcL LAB HEMETOLOGY METHOD 09/03/2024 6:35 PM EDT [facility] Lymphocytes Absolute 3.12 1.00 - 5.00 K/mcL LAB HEMETOLOGY METHOD 09/03/2024 6:35 PM EDT [facility] Monocytes Absolute 0.54 0.20 - 1.00 K/mcL LAB HEMETOLOGY METHOD 09/03/2024 6:35 PM EDT [facility] Eosinophils Absolute 0.31 0.00 - 0.50 K/[facility] LAB HEMETOLOGY METHOD 09/03/2024 6:35 PM EDT [facility] Basophils Absolute 0.07 0.00 - 0.20 K/[facility] LAB HEMETOLOGY METHOD 09/03/2024 6:35 PM EDT [facility] Immature Granulocytes Absolute 0.03 0.00 - 0.03 K/[facility] LAB HEMETOLOGY METHOD 09/03/2024 6:35 PM EDT [facility] Blood Venous blood specimen / Unknown Venipuncture / Unknown 09/03/2024 1:41 PM EDT 09/03/2024 1:41 PM EDT us Luciana Bucio DO LAB BLOOD ORDERABLES Final Re sult Performing Organization Address City/[facility]/ZIP Co de Phone Number [facility] [address] [place] [address], [place] [phone] * Iron and TIBC (09/03/2024 1:41 PM EDT) Iron 68 40 - 150 mcg/dL LAB CHEMISTRY METHOD 09/03/2024 8:45 PM EDT [facility] TIBC 348 250 - 450 mcg/dL LAB CHEMISTRY METHOD 09/03/2024 8:45 PM EDT [facility] Iron Saturation 20 15 - 50 % LAB CHEMISTRY METHOD 09/03/2024 8:45 PM EDT [facility] Blood Venous blood specimen / Unknown Venipuncture / Unknown 09/03/2024 1:41 PM EDT 09/03/2024 1:41 PM EDT us Tresa Bryson MD LAB BLOOD ORDERABLES Final R esult Performing Organization Address City/[facility]/ZIP Co de Phone Number [facility] [address] [place] [address], * Vitamin A (09/03/2024 1:41 PM EDT) Vitamin A 49 38 - 106 ug/dL 09/09/2024 6:[address] [facility] Comment: This test was developed and the performance characteristics determined by [facility]. It has not been cleared or approved by the FDA. The laboratory is regulated under CLIA as qualified to perform high-complexity testing. This test is used for patient testing purposes. It should not be regarded as investigational or for research. Test performed at [facility], [address] , [place] [address] Rosi Muhammad MD, PhD - Games Manager Blood Venous blood specimen / Unknown Venipuncture / Unknown 09/03/2024 1:41 PM EDT 09/03/2024 1:41 PM EDT Tresa Bryson MD LAB BLOOD ORDERABLES Final R esult [facility] [address] [place] [address] * Selenium serum (09/03/2024 1:41 PM EDT) Selenium 99 63 - 160 mcg/L 09/08/2024 8:[address] [facility] Comment: This test was developed and its analytical performance characteristics have been determined by [facility] [place], [place]. It has not been cleared or approved by the U.S. Food and Drug Administration. This assay has been validated pursuant to the CLIA regulations and is used for clinical purposes. Test Performed by Wil Mena, [facility], [address] [place] [address] Shmuel Gonzalez M.D., Ph.D., Director of Laboratories , CLIA [id number] Blood Venous blood specimen / Unknown Venipuncture / Unknown 09/03/2024 1:41 PM EDT 09/03/2024 1:41 PM EDT us Tresa Bryson MD LAB BLOOD ORDERABLES Final R esult [facility] [address] [place] [address] * Vitamin D 25 hydroxy (09/03/2024 1:41 PM EDT) [facility] Vit D, 25-Hydroxy 30.7 30.0 - 80.0 ng/mL LAB CHEMISTRY METHOD 09/03/2024 8:50 PM EDT [facility] Blood Venous blood specimen / Unknown Venipuncture / Unknown 09/03/2024 1:41 PM EDT 09/03/2024 1:41 PM EDT Tresa Bryson MD LAB BLOOD ORDERABLES Final R esult [facility] [address] [place] [address], [place] [phone] * Vitamin B1 (09/03/2024 1:41 PM EDT) [facility] Vitamin B1 Whole Blood 78 38 - 122 ug/L 09/09/2024 6:57 AM EDT [facility] Comment: This test was developed and the performance characteristics determined by [facility]. It has not been cleared or approved by the FDA. The laboratory is regulated under CLIA as qualified to perform high-complexity testing. This test is used for patient testing purposes. It should not be regarded as investigational or for research. Test performed at [facility], [address], [place] [address] Rosi Muhammad MD, PhD - Games Manager Blood Venous blood specimen / Unknown Venipuncture / Unknown 09/03/2024 1:41 PM EDT 09/03/2024 1:41 PM EDT us Tresa Bryson MD LAB BLOOD ORDERABLES Final R esult [facility] [address] [place] [address] * Magnesium (09/03/2024 1:41 PM EDT) Magnesium 2.3 1.9 - 2.6 mg/dL LAB CHEMISTRY METHOD 09/03/2024 8:15 PM EDT [facility] Blood Venous blood specimen / Unknown Venipuncture / Unknown 09/03/2024 1:41 PM EDT 09/03/2024 1:41 PM EDT us Tresa Bryson MD LAB BLOOD ORDERABLES Final R esult Performing Organization Address [facility] Co de Phone Number [facility] [address] [place] [address], [place] [phone] * (ABNORMAL) Hemoglobin A1c (09/03/2024 1:41 PM EDT) [facility] Hemoglobin A1C 6.5(H) <6.5 % LAB CHEMISTRY METHOD 09/04/2024 10:51 AM EDT [facility] Mean Bld Glu Estim. 140 mg/dL LAB CHEMISTRY METHOD 09/04/2024 10:51 AM EDT [facility] Blood Venous blood specimen / Unknown Venipuncture / Unknown 09/03/2024 1:41 PM EDT 09/03/2024 1:41 PM EDT us Fiolmena EUCEDA LAB BLOOD ORDERABLES Final Result Performing Organization Address City/[facility]/ZIP Co de Phone Number [facility] [address] [place] [address], [place] [phone] * Folate (09/03/2024 1:41 PM EDT) Pathologist [facility] Folate 8.7 2.8 - 17.0 ng/ml LAB CHEMISTRY METHOD 09/03/2024 8:45 PM EDT [facility] Blood Venous blood specimen / Unknown Venipuncture / Unknown 09/03/2024 1:41 PM EDT 09/03/2024 1:41 PM EDT us Tresa Bryson MD LAB BLOOD ORDERABLES Final R esult Performing Organization Address City/[facility]/ZIP Co de Phone Number [facility] [address] [place] [address], [place] [phone] * Ferritin (09/03/2024 1:41 PM EDT) [facility] Ferritin 38 8 - 252 ng/mL LAB CHEMISTRY METHOD 09/03/2024 8:45 PM EDT [facility] Blood Venous blood specimen / Unknown Venipuncture / Unknown 09/03/2024 1:41 PM EDT 09/03/2024 1:41 PM EDT us Tresa Bryson MD LAB BLOOD ORDERABLES Final R esult Performing Organization Address [facility]/ZIP Co de Phone Number [facility] [address] [place] [address], [place] [phone] * Vitamin B12 (09/03/2024 1:41 PM EDT) [facility] Vitamin B-12 441 250 - 900 pcg/mL LAB CHEMISTRY METHOD 09/03/2024 8:45 PM EDT [facility] Blood Venous blood specimen / Unknown Venipuncture / Unknown 09/03/2024 1:41 PM EDT 09/03/2024 1:41 PM EDT us Tresa Bryson MD LAB BLOOD ORDERABLES Final R esult [facility] [address] [place] [address], [place] [phone] * Albumin (09/03/2024 1:41 PM EDT) [facility] Albumin 3.6 3.2 - 5.0 g/dL LAB CHEMISTRY METHOD 09/03/2024 8:15 PM EDT [facility] Blood Venous blood specimen / Unknown Venipuncture / Unknown 09/03/2024 1:41 PM EDT 09/03/2024 1:41 PM EDT us Tresa Bryson MD LAB BLOOD ORDERABLES Final R esult [facility] [address] [place] [address], [place] [phone] * (ABNORMAL) Basic metabolic panel (09/03/2024 1:41 PM EDT) [facility] Sodium 142 133 - 145 mmol/L LAB CHEMISTRY METHOD 09/03/2024 8:15 PM EDT [facility] Potassium 4.0 3.5 - 5.5 mmol/L LAB CHEMISTRY METHOD 09/03/2024 8:15 PM [facility] Chloride 109 96 - 110 mmol/L LAB CHEMISTRY METHOD 09/03/2024 8:15 PM [facility] CO2 29 21 - 32 mmol/L LAB CHEMISTRY METHOD 09/03/2024 8:15 PM T [facility] Anion Gap 4 3 - 11 LAB CHEMISTRY METHOD 09/03/2024 8:15 PM [facility] Glucose 122(H) 70 - 100 mg/dL LAB CHEMISTRY METHOD 09/03/2024 8:15 PM [facility] BUN 11 5 - 25 mg/dL LAB CHEMISTRY METHOD 09/03/2024 8:15 PM [facility] Creatinine 0.73 0.50 - 1.10 mg/dL LAB CHEMISTRY METHOD 09/03/2024 8:15 PM EDT [facility] eGFR 97 >=60 mL/min/1. 73m2 LAB CHEMISTRY METHOD 09/03/2024 8:15 PM EDT [facility] Comment:Calculation based on the Chronic Kidney Disease Epidemiology Collaboration (CKD-EPI) equation refit without adjustment for race. BUN/Creatinine Ratio 15.1 LAB CHEMISTRY METHOD 09/03/2024 8:15 PM EDT [facility] Calcium 8.9 8.5 - 10.5 mg/dL LAB CHEMISTRY METHOD 09/03/2024 8:15 PM EDT [facility] Blood Venous blood specimen / Unknown Venipuncture / Unknown 09/03/2024 1:41 PM EDT 09/03/2024 1:41 PM EDT us Luciana Bucio DO LAB BLOOD ORDERABLES Final Re sult [facility] [address] [place] [address], [place] [phone] * US Pelvis Non OB Complete w Transvaginal (08/27/2024 11:08 AM EDT) Anatomical Region Laterality Modality Body, Pelvis Ultrasound 08/27/2024 5:06 PM EDT Impressions 08/27/2024 5:19 PM EDT Stable small left ovarian cyst. Decreasing collection in the central cervix which is no longer complex. POS [id number] -------- FINAL REPORT -------- Dictated By: Nanette Dang Dictated Date: 08/27/2024 17:06 ET Assigned Physician: Nanette Dang Reviewed and Electronically Signed By: Nanette Dang Signed Date: 08/27/2024 17:19 ET Workstation ID: [id number] Transcribed By: Self Edit Transcribed Date: 08/27/2024 17:06 ET Narrative 08/27/2024 5:19 PM EDT PELVIC ULTRASOUND HISTORY: Follow-up left ovarian cyst. COMPARISON: 07/09/2024 FINDINGS: Both transabdominal and endovaginal pelvic ultrasound were performed. Uterus: 7.2 x 5.0 x 4.6 cm in size. Retroverted position. No focal solid lesion. Decreased size of the fluid collection in the central cervix which is no longer complex. It measures 0.9 x 0.7 x 0.7 cm compared with 1.4 x 1.2 x 1.1 cm previously. Endometrium: Not well visualized. Right ovary: Normal in size measuring 1.9 x 1.6 x 1.5 cm without abnormality. Left ovary: Normal in size measuring 2.1 x 1.9 x 1.2 cm. It contains a stable 1.1 x 0.9 x 0.5 cm cyst. Cul-de-sac: No free fluid. Procedure Note Nanette Dang MD - 08/27/2024 PELVIC ULTRASOUND HISTORY: Follow-up left ovarian cyst. COMPARISON: 07/09/2024 FINDINGS: Both transabdominal and endovaginal pelvic ultrasound were performed. Uterus: 7.2 x 5.0 x 4.6 cm in size. Retroverted position. No focal solidlesion. Decreased size of the fluid collection in the central cervix whichis no longer complex. It measures 0.9 x 0.7 x 0.7 cm compared with 1.4 x1.2 x 1.1 cm previously. Endometrium: Not well visualized. Right ovary: Normal in size measuring 1.9 x 1.6 x 1.5 cm withoutabnormality. Left ovary: Normal in size measuring 2.1 x 1.9 x 1.2 cm. It contains astable 1.1 x 0.9 x 0.5 cm cyst. Cul-de-sac: No free fluid. IMPRESSION: Stable small left ovarian cyst. Decreasing collection in the central cervix which is no longer complex. POS [id number] -------- FINAL REPORT -------- Dictated By: Nanette Dang Dictated Date: 08/27/2024 17:06 ET Assigned Physician: Nanette Dang Reviewed and Electronically Signed By: Nanette Dang Signed Date: 08/27/2024 17:19 ET Workstation ID: [id number] Transcribed By: Self Edit Transcribed Date: 08/27/2024 17:06 ET Jose David Veliz CNM IMG US PROCEDURES Final Resul t * HPV with reflex genotype (07/01/2024 9:19 AM EDT) HPV Negative Negative LAB MICROBIOLOGY METHOD 07/02/2024 4:38 PM EDT [facility] Brushing Cervix uteri structure / Unknown 07/01/2024 9:19 AM EDT 07/02/2024 5:21 AM EDT Jose David Veliz CNM LAB MOLECULAR DIAGNOSTICS ORD ERABLES Final Result [facility] [address] [place] [address], [place] [phone] * Lipid panel with reflex to direct LDL (01/24/2024 9:25 AM EST) Cholesterol 169 0 - 200 mg/dL LAB CHEMISTRY METHOD 01/24/2024 1:09 PM [facility] Triglycerides 118 0 - 150 mg/dL LAB CHEMISTRY METHOD 01/24/2024 1:09 PM [facility] HDL 66 >=40 mg/dL LAB CHEMISTRY METHOD 01/24/2024 1:09 PM [facility] LDL Calculated 79 0 - 100 mg/dL LAB CHEMISTRY METHOD 01/24/2024 1:09 PM [facility] VLDL Cholesterol Tyshawn 23.6 mg/dL LAB CHEMISTRY METHOD 01/24/2024 1:09 PM [facility] Non HDL Chol. (LDL+VLDL) 103 <145 mg/dL LAB CHEMISTRY METHOD 01/24/2024 1:09 PM [facility] Chol/HDL Ratio 2.6 0.0 - 4.4 LAB CHEMISTRY METHOD 01/24/2024 1:09 PM [facility] Blood Venous blood specimen / Unknown Venipuncture / Unknown 01/24/2024 9:25 AM EST 01/24/2024 9:25 AM EST Filomena EUCEDA LAB BLOOD ORDERABLES Final Result Performing Organization Address [facility]/ZIP Co de Phone Number [facility] [address] [place] [address], [place] [phone] * Microalbumin creatinine urine ratio (01/24/2024 9:25 AM EST) Creatinine, Urine 74.0 mg/dL LAB CHEMISTRY METHOD 01/24/2024 1:30 PM EST [facility] Microalb, Ur 7.8 0.0 - 29.0 mg/L LAB CHEMISTRY METHOD 01/24/2024 1:30 PM EST [facility] Microalb/Creat Ratio 11 <30 mg/g creat LAB CHEMISTRY METHOD 01/24/2024 1:30 PM EST [facility] Urine Urine specimen from urethra / Unknown Non-blood Collection / Unknown 01/24/2024 9:25 AM EST 01/24/2024 9:25 AM EST Filomena EUCEDA LAB URINE ORDERABLES Final Result Performing Organization Address [facility] Co de Phone Number [facility] [address] [place] [address], [place] [phone] * Hm Depression Screening (11/13/2023) Depression Screening abstracted us Historical Provider HEALTH MAINTENANCE Final Result * External Diabetic Retina Eye Exam Report (11/02/2023 3:23 PM EDT) Anatomical Region Laterality Modality Ultrasound us Historical Provider IMG US PROCEDURES Final R esult * DX MAMMO INCL CAD UNI (11/08/2022 1:56 PM EDT) Anatomical Region Laterality Modality Mammography 10/07/2022 10:3 1 AM EDT Narrative 11/15/2022 9:25 AM EDT Please note that diagnostic mammogram on August 29, 2022 demonstrate 2 groups of calcifications in the upper-outer quadrant. The stereotactic needle core biopsy was obtained for the more anteriorly located group of calcifications. The 2nd posterior group of calcifications located approximately 2.5 cm more superior and more lateral in relation to the biopsied anterior group of calcifications are also suspicious. Given more posterior location, sampling may be challenging, but could be attempted prior to the needle localization, if it affects clinical management. LEFT BREAST, UPPER OUTER QUADRANT, ANTERIOR, CORE BIOPSY: - CALCIFICATIONS WITHIN USUAL AND FLORID DUCTAL HYPERPLASIA, ADENOSIS, COLUMNAR CELL CHANGE, AND CYSTS - MINUTE INTRADUCTAL PAPILLOMA AND APOCRINE METAPLASIA - NO ATYPIA OR MALIGNANCY IDENTIFIED ON DEEPER LEVELS Pathology results are benign and concordant with the imaging findings. Pathology results were communicated to the patient on November 14, 2022 at 3:[address] Dang. Form faxed to [facility] for surgical consult. PROCEDURE: [place] BX BREAST W/DEVICE 1ST LESION STEREOTACTIC GUID, DX MAMMO INCL CAD UNI History: Status post diagnostic mammogram on August 29, 2022 that shows 2 groups of calcifications in the upper-outer quadrant at about 7 and 10 cm from the nipple. Stereotactic needle core biopsy was recommended for the more anteriorly located group of calcifications. The procedure was explained to the patient including benefits and alternatives. The risks, including but not limited to infection and bleeding, were reviewed and the patient agreed to undergo the procedure, signing the consent form. ? Left stereotactic core biopsy: The patient's left breast was positioned in the Affirm upright biopsy system (H[employer]oo) and images of the calcifications in the upper outer quadrant middle depth were obtained. The breast was prepped for the procedure and the area was anesthetized with a local anesthetic 18 cc of lidocaine 1% buffered with Sodium Bicarbonate 4.2% (9cc: 1cc) superficially and deeper. Using a Digitwhizvera Biopsy System with Brevera 9G standard needle probe, one pass was made through the area from lateral approach, and multiple specimens were obtained. A [employer] SecurMark for Eviva Top Hat shape titanium ([id number]) micromarker was placed at the site of the core biopsy. The needle was then removed and adequate hemostasis was achieved. Estimated blood loss: Minimal The patient experienced no complications during the procedure. Specimen radiograph confirms calcifications in multiple specimens. Postprocedure unilateral left digital mammogram confirms top hat shape clip in satisfactory position. Discharge instructions were reviewed with the patient by myself and written instructions given. IMPRESSION: IMPRESSION: Left breast stereotactic core biopsy of group of calcifications in the upper quadrant middle depth completed. Awaiting pathology results. Concordance addendum will be generated when pathologic analysis is complete. Procedure Note Brandie Carpenter L - 03/21/2023 Please note that diagnostic mammogram on August 29, 2022 demonstrate 2groups of calcifications in the upper-outer quadrant. The stereotactic needle core biopsy wasobtained for the more anteriorly located group of calcifications. The 2nd posterior group ofcalcifications located approximately 2.5 cm more superior and more lateral in relation to thebiopsied anterior group of calcifications are also suspicious. Given more posterior location,sampling may be challenging, but could be attempted prior to the needle localization, ifit affects clinical management. LEFT BREAST, UPPER OUTER QUADRANT, ANTERIOR, CORE BIOPSY: - CALCIFICATIONS WITHIN USUAL AND FLORID DUCTAL HYPERPLASIA, ADENOSIS,COLUMNAR CELL CHANGE, AND CYSTS - MINUTE INTRADUCTAL PAPILLOMA AND APOCRINE METAPLASIA - NO ATYPIA OR MALIGNANCY IDENTIFIED ON DEEPER LEVELS Pathology results are benign and concordant with the imaging findings.Pathology results were communicated to the patient on November 14, 2022 at 3:[address] Dang.Form faxed to [facility] for surgical consult. PROCEDURE: [place] BX BREAST W/DEVICE 1ST LESION STEREOTACTIC GUID, DX MAMMOINCL CAD UNI History: Status post diagnostic mammogram on August 29, 2022 that shows 2groups of calcifications in the upper-outer quadrant at about 7 and 10 cm from thenipple. Stereotactic needle core biopsy was recommended for the more anteriorly located groupof calcifications. The procedure was explained to the patient including benefits andalternatives. The risks, including but not limited to infection and bleeding, were reviewed and thepatient agreed to undergo the procedure, signing the consent form. ? Left stereotactic core biopsy: The patient's left breast was positioned in the Affirm upright biopsysystem (HapBoo) and images of the calcifications in the upper outer quadrant middle depth wereobtained. The breast was prepped for the procedure and the area was anesthetized with a localanesthetic 18 cc of lidocaine 1% buffered with Sodium Bicarbonate 4.2% (9cc: 1cc)superficially and deeper. Using a [employer] Brevera Biopsy System with Brevera 9G standard needle probe, onepass was made through the area from lateral approach, and multiple specimens were obtained. [facility] SecurMark for Eviva Top Hat shape titanium ([id number]) micromarker was placed atthe site of the core biopsy. The needle was then removed and adequate hemostasis was achieved. Estimated blood loss: Minimal The patient experienced no complications during the procedure. Specimen radiograph confirms calcifications in multiple specimens. Postprocedure unilateral left digital mammogram confirms top hat shapeclip in satisfactory position. Discharge instructions were reviewed with the patient by myself andwritten instructions given. IMPRESSION: IMPRESSION: Left breast stereotactic core biopsy of group of calcifications in theupper quadrant middle depth completed. Awaiting pathology results. Concordance addendum will be generated when pathologic analysis iscomplete. Su Roman MD IMG BI PROCEDURES Edited Re sult - Final * Hepatitis C Screening (02/09/2009) Hepatitis C Screening abstracted Historical Provider HEALTH MAINTENANCE Final Result from Last 3 Months or Most Recently Relevant to Health Maintenance Insurance [facility] Care Teams Credit Risk Officer Relationship Specialty Start Date End Date Tk Mishra MD [address] [place] [id number] PCP - General Internal Medicine 10/15/24
--- NOTE | 2024-11-14 09:14 | A.OFFVIS_ITS ---
Intake Visit Reasons: back pain neuropathy Allergies gabapentin Allergy (Unknown, Verified 08/29/24 09:10) Hives lisinopril Allergy (Unknown, Verified 08/29/24 09:15) Headache losartan Allergy (Unknown, Verified 08/29/24 09:15) Fatigued metformin Allergy (Unknown, Verified 08/29/24 09:15) Unknown nitrofurantoin Allergy (Unknown, Verified 08/29/24 09:15) Gastrointestinal Upset pregabalin Allergy (Unknown, Verified 08/29/24 09:10) Throat tingling sulfamethoxazole (From Sulfamethoxazole-Trimethoprim) Allergy (Unknown, Verified 08/29/24 09:15) vaginal itching/ mouth sores trimethoprim (From Sulfamethoxazole-Trimethoprim) Allergy (Unknown, Verified 08/29/24 09:15) vaginal itching/ mouth sores HPI Comments Details: The patient is a 54-year-old female presenting with neuropathy and fibromyalgia management. She suffers from severe neuropathy pain, with burning and tingling sensations descending from the hips to the toes, reporting feelings of coldness and stiffness that impede movement, particularly aggravated during certain activities. Her history includes the use of exercise machines, gabapentin, and pregabalin, which have lost efficacy, and a past trial of hydrocodone for managing symptoms. Despite explorations in pain management, relief has been minimal, leading the patient to seek neurological consultation for alternative management plans, focusing on more direct treatment for her neuropathy. She has maintained reasonable diabetic control (A1C: 6.2 - 6.5), which supports the notion that diabetic neuropathy contributes to her symptoms. Her diagnostic history also revealed a lumbar spine disc herniation without clear progression data from EMG or MRI reports. The patient is currently not on any pain medication except Ozempic, used for diabetes. She expresses a desire for less invasive approaches than suggested interventional procedures, focusing instead on updated neurologic care plans. COUNT INCLUDES THE [facility] Medical History (Updated 11/14/24 @ 09:29 by Ryan Stauffer MD) Chronic low back pain Facial hemangioma (~1972) Tarsal tunnel syndrome Vitamin B12 deficiency Type II diabetes mellitus with neurological manifestations Thickened endometrium Post-nasal drainage Lumbar radicular pain Liver fibrosis Snoring Insomnia Incisional hernia Hypertension Hyperlipidemia Herpes Surgical History (Updated 08/29/24 @ 23:07 by MARS Kc) History of facial surgery (~1972) Hx of gastric bypass (~2022) Hx of knee surgery (~1994) History of hernia repair (~2008) History of H/O tubal ligation Social History (Updated 08/29/24 @ 09:32 by Aliza Omer) Alcohol intake: former Year quit: 2002 Patient Tobacco Use Status: Never used Tobacco Review of Systems Const Details: - Neurologic: Reports severe burning and tingling in hips, legs, and toes. Reports stiffness and difficulties with motion, exacerbated at bedtime and during standing or walking. - Musculoskeletal: Reports stiffness in legs. - Endocrine: Reports well-controlled diabetes with A1C levels around 6.2 - 6.5. - General: Denies any current pain medication usage except diabetic medication (Ozempic). Physical Exam Neuro Other: Mental Status: Alert and oriented to person, place, and time. Normal attention. Normal spontaneous speech, fluency, and comprehension. No obvious issues with mood and memory. Affect is appropriate. Cranial Nerves: CN II: Visual rodriguez full to confrontation, visual acuity intact. CN III, IV, : Pupils equal, round, reactive to light and accommodation. Extraocular movements are normal. CN V: Facial sensation is normal. CN VII: Facial movements symmetrical. CN VIII: Hearing intact to bedside conversation is normal. CN IX, X: Palate elevates symmetrically. CN XI: Shoulder shrug and head turn symmetrical. CN XII: Tongue midline without atrophy or fasciculations. Motor: Deep tendon reflexes are 1+ with flexor plantars. Sensation of vibration and joint position is slightly diminished in toes. Gait is cautious. Extrapyramidal: Full facial expressions and blinking. No rigidity. Movements are appropriate with no tremor or abnormality. Speech: Normal; no dysarthria or tremor. Assessment & Plan Assessment & Plan (1) Chronic painful diabetic neuropathy: Comment: Meds tried: Gabapentin, Pregabalin, hydrocodone, cyclobenzaprine MRI LS spine at [place] in 2024: Mild disc herniation (reported) NCV/EMG ALL 03/23/16 Mild bilateral median neuropathy across the carpal tunnel. No evidence of a diffuse peripheral neuropathy or a radiculopathy. NCV/EMG LE 10/22/14 BILATERAL DISTAL TIBIAL NEUROPATHY ACROSS THE TARSAL TUNNEL. Code(s): E11.40 - Type 2 diabetes mellitus with diabetic neuropathy, unspecified Category: Medical Plan Impression: Chronic probably diabetic painful neuropathy, probably mostly small fiber type Rec: a: EMG/NCS b: Duloxetine 20mg bid c: IF, B12, folate, Lyme, ESR Orders: Orders NE electromyogram (EMG) Today E11.40 - Type 2 diabetes mellitus with diabetic neuropathy, unspecified Erythrocyte Sedimentation Rate Today E11.40 - Type 2 diabetes mellitus with diabetic neuropathy, unspecified NE nerve conduction velocity Today E11.40 - Type 2 diabetes mellitus with d iabetic neuropathy, unspecified Immunofixation Pnl, Serum Today E11.40 - Type 2 diabetes mellitus with diabetic neuropathy, unspecified Lyme IgG/IgM w/reflex to WB Today E11.40 - Type 2 diabetes mellitus with diabetic neuropathy, unspecified Vitamin B12 and Folate Today E11.40 - Type 2 diabetes mellitus with diabetic neuropathy, unspecified Medications: New duloxetine 20 mg PO BID 180 caps 0RF Coding Level of Care Code New Pt Level 4 (11040) Diagnoses Chronic painful diabetic neuropathy E11.
== END 2024-11-14 09:37 | disposition home or self-care (01) ==
LOC: HO.HSM 08:44
PROVIDERS: PCP Internal Medicine; Visit Provider Psychiatry & Neurology Neurology
DX: E11.40 Type 2 diabetes mellitus with diabetic neuropathy, unspecified (principal)
CPT/HCPCS: 99204

== ENCOUNTER 2024-11-14 08:43 | Outpatient (REF) | payer OTHER, SELFPAY ==
--- OUTSIDE RECORDS SUMMARY | 2024-11-14 11:00 | XMS_ITS | Clinical Summary ---
Author Organization [facility] Address [address] [place] [address] [place], [place] [phone] Phone Care Team Providers Care Police Matron Name Role Phone Tk Mishra MD Primary Care Provider + Allergies Active Allergy Reactions Criticality Noted Date Comments Horse Dander Anaphylaxis High 03/19/2013 Other Reaction(s): itchy throat,has epi pen for this Lisinopril Low 05/21/2014 Other Reaction(s): Headaches migraines Losartan Other (See Comments) Medium 06/13/2014 Other Reaction(s): Headaches fatigue Metformin 03/11/2016 Other Reaction(s): abdominal pain, loose stools, Gastritis, OTHER Liver issues Nitrofurantoin 10/06/2017 Other Reaction(s): OTHER Upper Abdominal discomfort Oxycodone-Acetaminophen 09/07/2023 nausesea Medications EPINEPHrine (EPIPEN JR) 0.15 mg/0.3 mL auto-injector Inject as directed. Active gabapentin (NEURONTIN) 100 MG capsule Take 1 capsule by mouth nightly at bedtime. Active acyclovir (ZOVIRAX) 400 MG tablet Take 1 tablet by mouth 3 (three) times a day. 06/03/2022 Active Active Problems Problem Noted Date Diagnosed Date Abdominal pannus 11/21/2023 Skin laxity 11/21/2023 Diastasis recti 11/21/2023 Family History Medical History Relation Comments Cancer Father Cancer Mother Relation Status Comments Father Mother Social History Tobacco Use Types Packs/Day Years Used Date Smoking Tobacco: Never Smokeless Tobacco: Never Tobacco Cessation:Counseling Given: Not Answered Alcohol Use Standard Drinks/Week Comments Not Currently 0 (1 standard drink = 0.6 oz pur e alcohol) Education Answer Date Recorded Are you interested in more education? Not on rao e 08/10/2023 Are you concerned about learning? Not on file 08/10/2023 No 08/10/2023 No 08/10/2023 Digital Access Answer Date Recorded No 08/10/2023 No 08/10/2023 Reliable internet access at home? Not on file 08/10/2023 Device with a working camera? Not on file Comments Unknown Sex and Gender Information Value Date Recorded Sex Assigned at Not on file Legal Sex Female 2:25 PM EDT Gender Identity Not on file Sexual Orientation Not on file Last Filed Vital Signs Vital Sign Reading Time Taken Comments Blood Pressure 132/67 11/21/2023 9:14 AM EDT Pulse 55 11/21/2023 9:14 AM EDT Temperature - - Respiratory Rate - - Oxygen Saturation - - Inhaled Oxygen Concentration - - Weight 59.9 kg (132 lb) 11/21/2023 9:14 AM EDT Height 158.8 cm (5' 2.5 ) 11/21/2023 9:14 AM EDT Body Mass Index 23.76 11/21/2023 9:14 AM EDT Plan of Treatment Health Maintenance Due Date Last Done Comments DEPRESSION SCREENING 1980 HEPATITIS C SCREENING 1986 HIV ONE-TIME SCREENING (18-6 5 YEARS) 1986 SMOKING STATUS SCREENING (On ce After 26 Yrs) 1994 MAMMOGRAM 2008 COLOGUARD 2013 COLONOSCOPY 2013 COLORECTAL CANCER SCREENING 2013 FIT TEST 2013 FOBT 2013 SIGMOIDOSCOPY 2013 VIRTUAL COLONOSCOPY 2013 PNEUMOCOCCAL VACCINES (50+ y ears) (1 of 1 - PCV) 2018 ZOSTER VACCINES (1 of 2) 2018 Adult Td,Tdap Booster 06/22/2020 06/22/2010 PAP SMEAR 10/24/2022 10/25/2019 INFLUENZA VACCINE (#1) 2024 COVID-19 VACCINE (1 - 2023-2 5 season) 2024 LIPID PANEL 12/13/2026 12/13/2021 HEPATITIS A VACCINES Aged Out No long er eligible based on patient's age to complete this topic HIB VACCINES Aged Out No longer eligi ble based on patient's age to complete this topic MENINGOCOCCAL VACCINES (ACWY) Aged Out No longer eligible based on patient's age to complete this topic MENINGOCOCCAL VACCINES (B) Aged Out N o longer eligible based on patient's age to complete this topic Medical Devices Not on file Insurance [employer] Care Teams Police Matron Relationship Specialty Start Date End Date Tk Mishra MD [address] [place] [address] PCP - General Internal Medicine 09/05/23 Additional Source Comments The information contained in this document represents components of the legal health record. It is not the complete legal health record.[facility]
[2024-11-14 11:24] LABS: Folate 8.3 ng/mL (> or = 4.0); Vitamin B12 514 pg/mL (200-900)
[2024-11-15 06:29] LABS: Lyme Abs Screen <0.90 index
== END 2024-11-14 08:44 | disposition home or self-care (01) ==
LOC: HO.LAB 08:43
PROVIDERS: PCP Internal Medicine; Visit Provider Psychiatry & Neurology Neurology
DX: E11.40 Type 2 diabetes mellitus with diabetic neuropathy, unspecified (principal); Z01.84 Encounter for antibody response examination
CPT/HCPCS: 36415; 82607; 82746; 82784; 85652; 86334; 86617; 86618

== ENCOUNTER 2024-12-11 08:32 | Outpatient (REF) | payer OTHER, SELFPAY ==
--- OUTSIDE RECORDS SUMMARY | 2024-12-11 09:06 | XMS_ITS | Clinical Summary ---
Author Organization [facility] Address [address] [place] [address] [place], [place] [phone] Phone Care Team Providers Care Nursing Tech Name Role Phone Tk Mishra MD Primary [...] VACCINE (#1) 2024 COVID-19 VACCINE (1 - 2024-2 6 season) 2024 LIPID PANEL 12/13/2026 12/13/2021 RSV VACCINE (1 - 1-dose 75+ series) 2043 HEPATITIS A VACCINES Aged Out No long [...] topic Medical Devices Not on file Insurance [employer] [facility] [place] [address] Care Teams Nursing Tech Relationship Specialty Start Date End Date Tk Mishra MD [address] [place] [id number] PCP - General Internal Medicine 09/05/23 Additional Source Comments The information contained in this document represents components of the legal health record. It is not the complete legal health record.[facility]
--- NOTE | 2024-12-11 13:07 | EMG_ITS ---
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 Bilateral superficial peroneal and sural sensory studies were performed an EMG needle examination was performed. Bilateral median and lateral mixed plantars sensory studies were performed. Findings: Motor studies were with a normal limits. Bilateral median plantars sensory studies were absent while lateral responses bilaterally revealed significant reduction of amplitude. Right superficial peroneal sensory study was mildly slow. Otherwise no significant abnormality was noted. 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 This would suggest possibility of tarsal tunnel syndrome. Clinical correlation is recommended. [place] [id number] 2 extremities [facility]
== END 2024-12-11 08:33 | disposition home or self-care (01) ==
LOC: HO.NEURO 08:32
PROVIDERS: PCP Internal Medicine; Visit Provider Psychiatry & Neurology Neurology
DX: E11.40 Type 2 diabetes mellitus with diabetic neuropathy, unspecified (principal); G89.29 Other chronic pain
CPT/HCPCS: 95886; 95913

== ENCOUNTER → 2024-12-11 13:07 | Outpatient (BNV) | payer OTHER, SELFPAY | PROVIDERS: PCP Internal Medicine; Visit Provider Psychiatry & Neurology Neurology | DX: G62.89 Other specified polyneuropathies (principal) | CPT/HCPCS: 95886; 95913 ==

== ENCOUNTER 2025-01-06 08:17 | Outpatient (AMB) | payer OTHER, SELFPAY ==
--- OUTSIDE RECORDS SUMMARY | 2025-01-06 08:26 | XMS_ITS | Clinical Summary ---
Author Organization [facility] Address [address] [place] [address] [place], [place] [phone] Phone Care Team Providers Care Animal Handler Name Role Phone Tk Mishra MD Primary [...] topic Medical Devices Not on file Insurance [employer] [facility]CO [facility] [employer] Care Teams Animal Handler Relationship Specialty Start Date End Date Tk Mishra MD [address] [place] [id number] PCP - General Internal Medicine 09/05/23 Additional Source Comments The information contained in this document represents components of the legal health record. It is not the complete legal health record.[facility]
--- OUTSIDE RECORDS SUMMARY | 2025-01-06 08:26 | XMS_ITS | Clinical Summary ---
Author Organization [facility] Address [address] [place] [address] Phone Care Team Providers Care Braille Teacher Name Role Phone Tk Mishra MD Primary Care Provider [phone] Allergies Active Allergy Reactions Criticality Noted Date Comments Hairvite Hives 04/18/2022 Horse Dander Anaphylaxis High 03/19/2013 Lisinopril Headache Low 05/21/2014 migraines Losartan Headache,Other Medium 06/13/2014 fatigue Metformin GI intolerance 05/11/2022 Nitrofurantoin Other 10/06/2017 Upper Abdominal discomfort Sulfamethoxazole-Trimethop rim Itching,Other 03/01/2021 Vaginal itching and mouth sore Medications blood-glucose meter misc 1 Device by Does not apply route daily. 08/09/19 23 Active azelastine (ASTELIN) 137 mcg (0.1 %) nasal spray SPRAY 2 SPRAYS INTO EACH NOSTRIL TWICE A DAY DIRECTED 10/22/19 23 Active albuterol sulfate (ProAir RespiClick) 90 mcg/actuation aerosol powdr breath activated Inhale 108 mcg into the lungs 4 times daily as needed (wheezing). 02/11/20 22 Active acyclovir (ZOVIRAX) 400 mg tablet TAKE 1 TABLET BY MOUTH THREE TIMES A DAY 06/04/19 23 Active flash glucose sensor (FREESTYLE DARBY 2 SENSOR MISC) 1 Device by Does not apply route every 14 days. 05/04/19 24 Active blood-glucose meter,continuous (FreeStyle Darby 3 [place]) misc 1 Device by Does not apply route daily. 09/15/19 24 Active clotrimazole (MYCELEX) 10 mg doris Take 1 Doris by mouth 5 times daily for 10 days. 07/12/19 24 Active clotrimazole-beta methasone (LOTRISONE) 1-0.05 % cream Apply to area sparingly twice a day for up to two weeks 03/02/19 23 Active EPINEPHrine (EpiPen Jr) 0.15 mg/0.3 mL injection Inject as directed. prn Active FREESTYLE LANCETS MISC Use tid 09/13/19 23 Active blood sugar diagnostic (FreeStyle Lite Strips) test strip 1 Strip by In Vitro route daily. 09/13/19 23 Active estradioL (ESTRACE) 2 mg tablet Take 1 tablet (2 mg total) by mouth 1 (one) time each day. 90 tablet 3 02/21/19 25 026 Active medroxyPROGESTERo ne (PROVERA) 5 mg tablet Take 1 tablet (5 mg total) by mouth 1 (one) time each day. 90 tablet 3 02/21/19 25 Active Additional Information Patient not taking.Reported on 08/15/2024 estradioL (ESTRACE) 0.01 % (0.1 mg/gram) vaginal cream Apply 1gm pv daily for 1wk then twice wkly for maintenace 42.5 g 2 02/21/19 25 Active vitamin A 3,000 mcg (10,000 unit) capsuleIndication s:Postoperative intestinal malabsorption TAKE 1 TABLET (10,000 UNITS TOTAL) BY MOUTH 1 (ONE) TIME EACH DAY. 90 capsule 1 04/04/19 25 Active solifenacin (VESICARE) 10 mg tablet Take 1 tablet (10 mg total) by mouth 1 (one) time each day. Swallow tablet whole; do not crush, chew, or split. 90 each 3 05/10/19 25 026 Active ospemifene 60 mg tablet Take 1 each by mouth 1 (one) time each day. 90 tablet 08/01/19 25 Active Additional Information Patient not taking.Reported on 08/15/2024 vitamin A palmitate 3,000 mcg (10,000 unit) capsule Take 1 capsule by mouth 1 (one) time each day. 06/30/19 25 Active blood-glucose sensor (FreeStyle Darby 3 Plus Sensor) deviceIndications :Type II diabetes mellitus with neurological manifestations (CMS/HCC V24, CMS/HCC V28) Box = Kit = EA 2 each 10/08/19 25 Active triamcinolone (KENALOG) 0.025 % ointment Apply 3-4x/day to affected area 15 g 1 10/17/19 25 Active incontinence pad, liner, disp (Bladder Control Pads) pad Patient to change pad 3x daily or PRN 90 each 10/16/19 25 Active escitalopram (LEXAPRO) 5 mg tablet Take 1 tablet (5 mg total) by mouth 1 (one) time each day. 90 tablet 10/16/19 25 Active EPINEPHrine (EPIPEN) 0.3 mg/0.3 mL injection Inject 0.3 mL (0.3 mg total) into the thigh if needed for anaphylaxis. Call 911 after use. 2 each 10/16/19 25 026 Active triamcinolone (KENALOG) 0.025 % ointment Apply 3-4x/day to affected area 15 g 10/17/19 25 Active terconazole (TERAZOL 3) 80 mg vaginal suppository Insert 1 suppository (80 mg total) into the vagina at bedtime. Apply pv x3days 4 suppository 3 10/17/19 25 Active traZODone (DESYREL) 50 mg tablet TAKE 1 TABLET BY MOUTH AT BEDTIME NEEDED FOR SLEEP. 90 tablet 11/08/19 25 Active loratadine (CLARITIN) 10 mg tablet Take 1 tablet (10 mg total) by mouth 1 (one) time each day. 90 tablet 12/24/19 25 Active tirzepatide (Mounjaro) 5 mg/0.5 mL injectionIndicati ons:Type II diabetes mellitus with neurological manifestations (CMS/HCC V24, CMS/HCC V28) Inject 0.5 mL (5 mg total) under the skin every 7 (seven) days. 2 mL 3 12/24/19 25 Active loratadine (CLARITIN) 10 mg tablet TAKE 1 TABLET BY MOUTH 1 TIME EACH DAY. 90 tablet 09/24/19 25 025 Disconti nued(Reo rder) tirzepatide (Mounjaro) 5 mg/0.5 mL injection Inject 0.5 mL (5 mg total) under the skin every 7 (seven) days. 2 mL 1 10/18/19 25 025 Disconti nued(Reo rder) Active Problems Problem Noted Date Diagnosed Date [...] pain 08/13/2021 Herpes 07/17/2019 Diabetic kidney disease ([facility] V24, [facility] V2 8) 07/04/2019 Carpal tunnel [...] II diabetes mellitus wi th neurological manifestations ([facility] V24, [facility] V28) 11/13/2014 Plantar fascial fibromatosis [...] mellitus wi th renal manifestations (CMS/HCC V24, CMS/[facility] V28) 11/01/2005 Incisional hernia 06/22/2005 Hypertension 06/01/2005 Overview (12/01/2023): In . Not currently on medications. She's been intolerant to both JT/ARB. Encounters Date Type Department Care Team Description 10/17/2024 Telephone Endocrinology - [place] [address] [place] [address] Filomena George PA from Last 3 Months Immunizations Immunization Administration [...] Site/Laterality Comments INCISIONAL HERNIA REPAIR 08/2005 PROCEDURE: CO IMPLANT MESH OPN HERNIA RPR/DEBRIDEMENT CLOSURE; COMMENT: Olivier OTHER SURGICAL HISTORY 2003 PROCEDURE: CO FIMBRIOPLASTY OTHER SURGICAL HISTORY PROCEDURE: CO SALPINGOSTOMY; COMMENT: reversal of tubal ligation -2003 SECTION PROCEDURE: CO DELIVERY ONLY; COMMENT: x 4 TUBAL LIGATION 1991; 2007 PROCEDURE: HISTORICAL TUBAL LIGATION KNEE ARTHROSCOPY W/ DEBRIDEMENT 1993 PROCEDURE: CO ARTHRS KNEE DEBRIDEMENT/SHAVING ARTCLR CRTLG; COMMENT: right OTHER SURGICAL HISTORY age 1 PROCEDURE: CO ANESTHESIA FACIAL BONES OR SKULL NOS; COMMENT: facial hemangioma right jaw area OTHER SURGICAL HISTORY 2001 PROCEDURE: SCREENING COLPOSCOPY; COMMENT: with Leep OTHER SURGICAL HISTORY 10/11/2016 PROCEDURE: CO EXCISION MALIGNANT LESION F/E/E/N/L 0.5 CM/<; COMMENT: With reconstruction the following day (Basal cell CA) COLONOSCOPY 02/2021 PROCEDURE: HISTORICAL COLONOSCOPY; COMMENT: nml BREAST BIOPSY 2016 Right PROCEDURE: BX BREAST; PERC NEEDLE CORE [...] DX:Hi story of cervical cancer; COMMENT: cone 2002 free margins Hyperlipidemia 04/11/2013 DX:Hyperlipidemi a Microalbuminuria [...] for your loved ones. For example, child psychology teacher or elderly care for an older adult? [...] CS-Un spec Livin g Elayne ny Delivery Location:[facility] Comments:HTN 004 35w 5d 4394 g (155 oz) M CS-Un spec Livin g Boscor abraham Delivery Location:[facility] Comments:GDM-A2 006 Term 39w 0d 4309 g (152 oz) M CS-Un spec Livin g Vinzor abraham Delivery Location:[facility] Comments:GDM-A2 008 Term 39w 0d 4224 g (149 oz) M CS-Un spec Livin g Patrickkor abraham Delivery Location:[facility] Comments:GDM-A2 Last Filed Vital Signs Vital Sign [...] Care Team (Late st Contact Info) Description 02/20/2025 9:00 AM EST Office Visit Internal Medicine [address] [phone] Tk Mishra MD [address] [place] [id number] 03/06/2025 1:00 PM EST Office Visit Bariatric Surgery - [place] [address] [facility] [address] [place] [phone] Tresa Bryson MD [address] [place] [address] 03/24/2025 9:00 AM EST Office Visit Endocrinology - [address] [phone] Minnie De PA [address] [place] [address] Health Maintenance Due Date Last Done Comments Colorectal Cancer Screening: Colonoscopy 1968 Diabetes: Annual Foot Exam 1978 Pneumococcal Vaccine: 50+ Years (2 of 2 - PCV) 11/14/2015 11/13/2014 RSV Immunization Adult Patients (1 - Risk 50-74 years 1-dose series) 2018 DTaP,Tdap,and Td Vaccines (2 - Td or Tdap) 06/22/2020 06/22/2010 HIV Screening 01/22/2022 COVID-19 Vaccine (4 - season) 2024 11/27/2020, 05/31/2020, 05/08/2020 Influenza [...] Cervical Cancer Screening: HPV 07/01/2029 07/01/2024, 10/25/2019 Hepatitis C Screening Completed 02/09/2009 Hepatitis A [...] Procedure Name Priority Date/Time Associated Diagnosis Comments BASIC METABOLIC PANEL Routine 09/03/2024 1:41 PM EDT Preop testing HEMOGLOBIN A1C Routine 09/03/2024 1:41 PM EDT Type II diabetes mellitus with neurological manifestations (CMS/HCC V24, CMS/HCC V28) HPV WITH REFLEX GENOTYPE Routine 07/01/2024 9:19 AM EDT Women's annual routine gynecological examination MICROALBUMIN CREATININE URINE RATIO Routine 01/24/2024 9:25 AM EST Type 2 diabetes mellitus with other kidney complication, unspecified whether buttermaker helper insulin use (CMS/HCC V24, CMS/HCC V28) LIPID PANEL WITH REFLEX TO DIRECT LDL Routine 01/24/2024 9:25 AM EST Type 2 diabetes mellitus with other kidney complication, unspecified whether long-term insulin use (CMS/HCC V24, CMS/HCC V28) DEPRESSION SCREENING Routine 11/13/2023 EXTERNAL DIABETIC RETINA EYE EXAM Routine 11/02/2023 3:23 PM EDT DX MAMMO INCL CAD UNI Routine 11/08/2022 1:56 PM EDT Other abnormal and inconclusive findings on diagnostic imaging of breast HEPATITIS C SCREENING Routine 02/09/2009 from Last 3 Months or Most Recently Relevant to Health Maintenance Results * (ABNORMAL) Hemoglobin A1c (09/03/2024 1:41 PM EDT) Hemoglobin A1C 6.5(H) <6.5 % LAB CHEMISTRY METHOD 09/04/2024 10:51 AM [facility] Mean Bld Glu Estim. 140 mg/dL LAB CHEMISTRY METHOD 09/04/2024 10:51 AM [facility] Blood Venous blood specimen / Unknown Venipuncture / Unknown 09/03/2024 1:41 PM EDT 09/03/2024 1:41 PM EDT us Filomena EUCEDA LAB BLOOD ORDERABLES Final Result [facility] [address] [place] [address], [place] [phone] * (ABNORMAL) Basic metabolic panel (09/03/2024 1:41 PM EDT) Sodium 142 133 - 145 mmol/L LAB CHEMISTRY METHOD 09/03/2024 8:15 PM [facility] Potassium 4.0 3.5 - 5.5 mmol/L LAB CHEMISTRY METHOD 09/03/2024 8:15 PM [facility] Chloride 109 96 - 110 mmol/L LAB CHEMISTRY METHOD 09/03/2024 8:15 PM [facility] CO2 29 21 - 32 mmol/L LAB CHEMISTRY METHOD 09/03/2024 8:15 PM [facility] Anion Gap 4 3 - 11 LAB CHEMISTRY METHOD 09/03/2024 8:15 PM [facility] Glucose 122(H) 70 - 100 mg/dL LAB CHEMISTRY METHOD 09/03/2024 8:15 PM [facility] BUN 11 5 - 25 mg/dL LAB CHEMISTRY METHOD 09/03/2024 8:15 PM [facility] Creatinine 0.73 0.50 - 1.10 mg/dL LAB CHEMISTRY METHOD 09/03/2024 8:15 PM [facility] eGFR 97 >=60 mL/min/1. 73m2 LAB CHEMISTRY METHOD 09/03/2024 8:15 PM EDT [facility] Comment:Calculation based on the Chronic Kidney Disease Epidemiology Collaboration (CKD-EPI) equation refit without adjustment for race. BUN/Creatinine Ratio 15.1 LAB CHEMISTRY METHOD 09/03/2024 8:15 PM EDT [facility] Calcium 8.9 8.5 - 10.5 mg/dL LAB CHEMISTRY METHOD 09/03/2024 8:15 PM EDT [facility] Blood Venous blood specimen / Unknown Venipuncture / Unknown 09/03/2024 1:41 PM EDT 09/03/2024 1:41 PM EDT Luciana Bucio DO LAB BLOOD ORDERABLES Final Re sult Performing Organization Address City/[facility]/ZIP Co de Phone Number [facility] [address] [place] [address], * HPV with reflex genotype (07/01/2024 9:19 AM EDT) HPV Negative Negative LAB MICROBIOLOGY METHOD 07/02/2024 4:38 PM EDT [facility] Brushing Cervix uteri structure / Unknown 07/01/2024 9:19 AM EDT 07/02/2024 5:21 AM EDT Jose David Veliz CNM LAB MOLECULAR DIAGNOSTICS ORD ERABLES Final Result [facility] [address] [place] [address], [place] [phone] * Lipid panel with reflex to direct LDL (01/24/2024 9:25 AM EST) Cholesterol 169 0 - 200 mg/dL LAB CHEMISTRY METHOD 01/24/2024 1:09 PM EST [facility] Triglycerides 118 0 - 150 mg/dL LAB CHEMISTRY METHOD 01/24/2024 1:09 PM [facility] HDL 66 >=40 mg/dL LAB CHEMISTRY METHOD 01/24/2024 1:09 PM [facility] LDL Calculated 79 0 - 100 mg/dL LAB CHEMISTRY METHOD 01/24/2024 1:09 PM [facility] VLDL Cholesterol Tyshawn 23.6 mg/dL LAB CHEMISTRY METHOD 01/24/2024 1:09 PM [facility] Non HDL Chol. (LDL+VLDL) 103 <145 mg/dL LAB CHEMISTRY METHOD 01/24/2024 1:09 PM [facility] Chol/HDL Ratio 2.6 0.0 - 4.4 LAB CHEMISTRY METHOD 01/24/2024 1:09 PM [facility] Blood Venous blood specimen / Unknown Venipuncture / Unknown 01/24/2024 9:25 AM EST 01/24/2024 9:25 AM EST us Filomena EUCEDA LAB BLOOD ORDERABLES Final Result [facility] [address] [place] [address], * Microalbumin creatinine urine ratio (01/24/2024 9:25 AM EST) Creatinine, Urine 74.0 mg/dL LAB CHEMISTRY METHOD 01/24/2024 1:30 PM [facility] Microalb, Ur 7.8 0.0 - 29.0 mg/L LAB CHEMISTRY METHOD 01/24/2024 1:30 PM [facility] Microalb/Creat Ratio 11 <30 mg/g creat LAB CHEMISTRY METHOD 01/24/2024 1:30 PM [facility] Urine Urine specimen from urethra / Unknown Non-blood Collection / Unknown 01/24/2024 9:25 AM EST 01/24/2024 9:25 AM EST us Filomena EUCEDA LAB URINE ORDERABLES Final Result [facility] [address] [place] [address], [place] [phone] * Depression Screening (11/13/2023) Depression Screening abstracted us Historical Provider MD HEALTH MAINTENANCE Final Result * External Diabetic Retina Eye Exam Report (11/02/2023 3:23 PM EDT) Anatomical Region Laterality Modality Ultrasound Historical Provider IMG US PROCEDURES Final R [...] PM by Dr. Dang. Form faxed to [facility] for surgical consult. PROCEDURE: CO BX BREAST W/DEVICE 1ST LESION STEREOTACTIC GUID, [...] positioned in the Affirm upright biopsy system (Lifesum) and images of the calcifications in the upper outer quadrant middle depth were obtained. The breast was prepped for the procedure and the area was anesthetized with a local anesthetic 18 cc of lidocaine 1% buffered with Sodium Bicarbonate 4.2% (9cc: 1cc) superficially and deeper. Using a Lifesum Brevera Biopsy System with Brevera 9G standard needle probe, one pass was made through the area from lateral approach, and multiple specimens were obtained. A Lifesum SecurMark for Eviva Top Hat shape titanium ([id number]) micromarker was placed at the site of [...] 3:[address] Dang.Form faxed to [facility] for surgical consult. PROCEDURE: CO BX BREAST W/DEVICE 1ST LESION STEREOTACTIC GUID, [...] was positioned in the Affirm upright biopsysystem (Lifesum) and images of the calcifications in the upper outer quadrant middle depth wereobtained. The breast was prepped for the procedure and the area was anesthetized with a localanesthetic 18 cc of lidocaine 1% buffered with Sodium Bicarbonate 4.2% (9cc: 1cc)superficially and deeper. Using a Lifesum Brevera Biopsy System with Brevera 9G standard needle probe, onepass was made through the area from lateral approach, and multiple specimens were obtained. ologic SecurMark for Eviva Top Hat shape titanium ([id number]) micromarker was placed atthe site of the [...] when pathologic analysis iscomplete. Su Roman MD [facility] BI PROCEDURES Edited Re sult - Final * Hepatitis C Screening (02/09/2009) Hepatitis C Screening abstracted Historical Provider [facility] Final Result from Last 3 Months or Most Recently Relevant to Health Maintenance Insurance [facility] Care Teams Braille Teacher Relationship Specialty Start Date End Date Tk Mishra MD [address] [place] [id number] PCP - General Internal Medicine 10/15/24
--- NOTE | 2025-01-06 08:37 | MHC.OFFVIS ---
Intake Visit Reasons: results Allergies gabapentin Allergy (Unknown, Verified 08/29/24 09:10) Hives lisinopril Allergy (Unknown, Verified 08/29/24 09:15) Headache losartan Allergy (Unknown, Verified 08/29/24 09:15) Fatigued metformin Allergy (Unknown, Verified 08/29/24 09:15) Unknown nitrofurantoin Allergy (Unknown, Verified 08/29/24 09:15) Gastrointestinal Upset pregabalin Allergy (Unknown, Verified 08/29/24 09:10) Throat tingling sulfamethoxazole (From Sulfamethoxazole-Trimethoprim) Allergy (Unknown, Verified 08/29/24 09:15) vaginal itching/ mouth sores trimethoprim (From Sulfamethoxazole-Trimethoprim) Allergy (Unknown, Verified 08/29/24 09:15) vaginal itching/ mouth sores HPI Comments Details: 54 years old woman with history of obesity and type 2 diabetes with bilateral foot pain. Pain was mostly in toes and burning aching type. There was no difficulty walking or loss of bowel bladder control. She had an MRI of lumbosacral spine that did not reveal any significant pathology. 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 Laboratories done for treatable causes of neuropathy were negative. [facility] Medical History (Updated 01/06/25 @ 08:39 by Ryan Stauffer MD) Chronic low back pain Facial hemangioma (~1972) Tarsal tunnel syndrome Vitamin B12 deficiency Type II diabetes mellitus with neurological manifestations Thickened endometrium Post-nasal drainage Lumbar radicular pain Liver fibrosis Snoring Insomnia Incisional hernia Hypertension Hyperlipidemia Herpes Surgical History (Updated 08/29/24 @ 23:07 by MARS Kc) History of facial surgery (~1972) Hx of gastric bypass (~2022) Hx of knee surgery (~1994) History of hernia repair (~2008) History of H/O tubal ligation Social History (Updated 08/29/24 @ 09:32 by Aliza Omer) Alcohol intake: former Year quit: 2002 Patient Tobacco Use Status: Never used Tobacco Review of Systems Narrative Complain of bilateral feet numbness and burning pain. No loss of bowel bladder control No difficulty walking Physical Exam Neuro Other: Mental Status: Alert and oriented to person, place, and time. Normal attention. Normal spontaneous speech, fluency, and comprehension. No obvious issues with mood and memory. Affect is appropriate. Cranial Nerves: CN II: Visual rodriguez full to confrontation, visual acuity intact. CN III, IV, : Pupils equal, round, reactive to light and accommodation. Extraocular movements are normal. CN V: Facial sensation is normal. CN VII: Facial movements symmetrical. CN VIII: Hearing intact to bedside conversation is normal. CN IX, X: Palate elevates symmetrically. CN XI: Shoulder shrug and head turn symmetrical. CN XII: Tongue midline without atrophy or fasciculations. Extrapyramidal: Full facial expressions and blinking. No rigidity. Movements are appropriate with no tremor or abnormality. Speech: Normal; no dysarthria or tremor. Results Reviewed Results Reviewed: Laboratory Tests 11/14/24 10:03 ESR 7 Vitamin B12 514 Folate 8.3 IgG Total 1200 IgA Total 442 H IgM 80 MIKE Interpretation SEE NOTE Lyme Screen IgG & IgM <0.90 Assessment & Plan Assessment & Plan (1) Chronic painful diabetic neuropathy: Comment: Meds tried: Gabapentin, Pregabalin, hydrocodone, cyclobenzaprine EMG/NCS LEs at [facility] in Dec 2024: B/L distal tibial neuropathy in feet MRI LS spine at [place] in 2024: Mild disc herniation (reported) NCV/EMG ALL 03/23/16 Mild bilateral median neuropathy across the carpal tunnel. No evidence of a diffuse peripheral neuropathy or a radiculopathy. NCV/EMG LE 10/22/14 BILATERAL DISTAL TIBIAL NEUROPATHY ACROSS THE TARSAL TUNNEL. Code(s): E11.40 - Type 2 diabetes mellitus with diabetic neuropathy, unspecified Category: Medical Plan Impression and recommendations: 54 years old woman with history of obesity and type 2 diabetes with bilateral foot pain suggestive of neuropathic etiology. EMG nerve conduction study revealed bilateral distal tibial neuropathy in feet. Imaging did not reveal any significant back pathology. She was educated about this type of problem and its conservative management. Duloxetine 20 mg twice a day was prescribed and she was advised to be careful and where appropriate shoes and avoid walking bare feet. Medications: Refilled duloxetine 20 mg PO BID 180 caps 0RF Coding Level of Care Code Est Pt Level 4 (62699) Diagnoses Chronic painful diabetic neuropathy E11.40
== END 2025-01-06 08:46 | disposition home or self-care (01) ==
LOC: HO.HSM 08:18
PROVIDERS: PCP Internal Medicine; Visit Provider Psychiatry & Neurology Neurology
DX: E11.40 Type 2 diabetes mellitus with diabetic neuropathy, unspecified (principal)
CPT/HCPCS: 99214